=== PATIENT | male | born 1960 | race Asian ===

== ENCOUNTER 2018-12-04 17:13 | Emergency (ER) | payer MEDICAID ==
[~2018-12-04] VITALS: Ht 182.9 cm; Wt 72.6 kg
[2018-12-04 21:19] VITALS: BP 127/67
== END 2018-12-04 21:19 | disposition home or self-care (01) ==
LOC: ED 17:13
DX: T23.202A Burn of second degree of left hand, unspecified site, initial encounter (principal); E11.9 Type 2 diabetes mellitus without complications; X10.2XXA Contact with fats and cooking oils, initial encounter; Y93.89 Activity, other specified; Y92.89 Other specified places as the place of occurrence of the external cause; Y99.8 Other external cause status
CPT/HCPCS: 90715

== ENCOUNTER 2018-12-06 23:43 | Emergency (ER) | payer MEDICAID ==
[~2018-12-06] VITALS: Ht 182.9 cm; Wt 72.6 kg
[2018-12-06 23:52] VITALS: Ht 182.9 cm; Wt 72.6 kg
[2018-12-07 02:29] VITALS: BP 114/67
== END 2018-12-07 02:29 | disposition home or self-care (01) ==
LOC: ED 23:43
DX: T23.041A Burn of unspecified degree of multiple right fingers (nail), including thumb, initial encounter (principal); E11.9 Type 2 diabetes mellitus without complications; W86.8XXA Exposure to other electric current, initial encounter; Y93.89 Activity, other specified; Y92.89 Other specified places as the place of occurrence of the external cause; Y99.8 Other external cause status